=== PATIENT | female | born 1980 | race Caucasian/White ===

== ENCOUNTER 2023-11-28 13:19 | Outpatient (CLI) | payer OTHER ==
--- NOTE | 2023-11-28 15:19 | MRI Report ---
PROCEDURE: Brain WO INDICATIONS: DIZZINESS TECHNIQUE: Noncontrast axial T1 spin echo, axial T2 fast spin echo, sagittal and axial FLAIR, coronal T2 fast sp in echo, axial gradient echo, axial diffusion and ADC through the brain. COMPARISON: None. FINDINGS: Image quality: Excellent. CSF Spaces: Basal cisterns are patent. No extra-axial fluid collections. Ventricles are normal in size and shape. Brain: There are a few periventricular white matter T2/FLAIR hyperintense lesions, the largest withi n the left periventricular parietal lobe measuring 1.1 cm. No intracranial masses or hemorrhage. Gra y/white matter interface is normal. Brainstem appears normal. Diffusion-weighted images demonstrate no acute ischemic insult. No chronic ischemic insults. Normal intravascular flow voids are present . Skull and face: Calvarium has normal marrow signal. Orbits appear normal. Sinuses: Sinuses and mastoids are clear. IMPRESSION: There are a few periventricular T2/FLAIR hyperintense lesions within the white matter, with the large st within the left parietal lobe measuring 1.1 cm. Findings may represent a demyelinating process. Ot her differential etiologies include sequela of prior migraines or vasculitis. Recommend clinical risa elation and consider repeat exam with contrast. Reviewed by: Solitario Silver MD on 11/28/2023 3:18 PM PDT Approved by: Solitario Silver MD on 11/28/2023 3:18 PM PDT Station ID: [id number]
== END 2023-11-28 13:20 | disposition home or self-care (01) ==
LOC: DI 13:19
PROVIDERS: ATTEND Family Medicine
DX: G93.9 Disorder of brain, unspecified (principal); R42 Dizziness and giddiness; R55 Syncope and collapse

== ENCOUNTER 2023-12-20 14:32 | Outpatient (CLI) | payer OTHER ==
[~2023-12-20 14:32] MED LIST: GADOTERATE MEGLUMINE 10 MMOL/20 ML VIAL ONE
[2023-12-20] MEDS: GADOTERATE MEGLUMINE 10 MMOL/20 ML VIAL IVP ONE (17:45)
--- NOTE | 2023-12-22 14:28 | MRI Report ---
PROCEDURE: Cervical Spine W/WO INDICATIONS: ABN BRAIN MRI CONTRAST: clariscan 16.4ml TECHNIQUE: Noncontrast sagittal T1 spin echo and T2 fast spin echo, sagittal STIR, sagittal PD fast spin echo, f oraminal oblique sagittal T2 fast spin echo, axial gradient echo or T2 fast spin echo through the cer vical spine. After the administration of contrast, sagittal and axial T1 spin echo with fat saturati on through the cervical spine. COMPARISON: Correlation is made with brain MRI, 11/28/2023. FINDINGS: Image quality: Motion artifact is noted. Alignment and curvature: There is overall straightening of the normal cervical lordosis. No significant AP alignment abnormality can be seen. Marrow: Marrow demonstrates normal overall signal. Spinal cord: Visualized spinal cord is normal in size, without white matter lesions. No suspicious intramedullary enhancement. No cerebellar tonsillar herniation. Paraspinous soft tissues: No paravertebral masses or suspicious enhancement. C2-C3: Normal in appearance. C3-C4: Normal in appearance. C4-C5: Normal in appearance. C5-C6: Normal in appearance. C6-C7: Normal in appearance. C7-T1: Normal in appearance. IMPRESSION: No definite abnormal T2 hyperintense lesions can be seen within the cervical spinal cord. No abnormal enhancement can be seen. Reviewed by: Prateek August MD on 12/22/2023 1:27 PM [facility] Approved by: Prateek August MD on 12/22/2023 1:27 PM [facility] Station ID: [id number]
== END 2023-12-20 14:33 | disposition home or self-care (01) ==
LOC: DI 14:32
PROVIDERS: ATTEND Family Medicine
DX: R42 Dizziness and giddiness (principal); R53.83 Other fatigue; R93.0 Abnormal findings on diagnostic imaging of skull and head, not elsewhere classified; R55 Syncope and collapse; H53.9 Unspecified visual disturbance
CPT/HCPCS: 72156; A9575

== ENCOUNTER 2024-01-03 14:01 | Outpatient (CLI) | payer OTHER ==
[2024-01-03] MEDS ORDERED: GADOTERATE MEGLUMINE 10 MMOL/20 ML VIAL ONE (15:34)
[2024-01-03] MEDS: GADOTERATE MEGLUMINE 10 MMOL/20 ML VIAL IVP ONE (17:40)
--- NOTE | 2024-01-04 13:10 | MRI Report ---
PROCEDURE: Brain W/WO INDICATIONS: ABN BRAIN MR CONTRAST: clariscan 16ml TECHNIQUE: Noncontrast axial T1 spin echo, axial T2 fast spin echo, sagittal and axial FLAIR, coronal T2 fast sp in echo, axial gradient echo, axial diffusion and ADC through the brain. After the administration of contrast, axial and coronal T1 spin echo with fat saturation through the brain. COMPARISON: MRI brain 11/28/2023. FINDINGS: Image quality: Excellent. CSF spaces: Basal cisterns are patent. No extra-axial fluid collections. Ventricles are normal in size and shape. Brain: Stable appearance of the periventricular white matter T2/FLAIR hyperintense lesions, largest within the left periventricular parietal lobe measuring approximately 1.1 cm. No new lesions. No enha ncing lesions. No midline shift. No intracranial bleeds or masses. No abnormal intracranial enhance ment. The brainstem appears normal. Diffusion-weighted images demonstrate no acute ischemic insults . No chronic ischemic insults. Normal intravascular flow voids are present. Skull and face: Calvarial marrow is normal in signal. Orbits appear normal. Sinuses: Sinuses and mastoids appear clear. IMPRESSION: Stable appearance of periventricular T2/FLAIR hyperintense white matter lesions. There is no associat ed enhancement to suggest an acute lesion. Findings are concerning for a demyelinating process and cl inical correlation is recommended. Reviewed by: Solitario Silver MD on 01/04/2024 1:09 PM PDT Approved by: Solitario Silver MD on 01/04/2024 1:09 PM PDT Station ID: [id number]
== END 2024-01-03 14:02 | disposition home or self-care (01) ==
LOC: DI 14:01
PROVIDERS: ATTEND Family Medicine
DX: G93.9 Disorder of brain, unspecified (principal); R42 Dizziness and giddiness; R53.83 Other fatigue; R55 Syncope and collapse; H53.9 Unspecified visual disturbance
CPT/HCPCS: 70553; A9575